=== PATIENT | male | born 1990 | race African-American/Black ===

== ENCOUNTER 2023-11-25 17:50 | Emergency (ER) | payer SELFPAY | END 2023-11-25 20:07 | disposition home or self-care (01) | LOC: CSHERS 17:50 | DX: S06.9X9A Unspecified intracranial injury with loss of consciousness of unspecified duration, initial encounter (principal); W18.09XA Striking against other object with subsequent fall, initial encounter | CPT/HCPCS: 36416; 70450; 93005 ==